=== PATIENT | male | born 1990 | race American Indian/Alaskan Native ===

== ENCOUNTER 2020-02-01 13:17 | Emergency (ER) | payer SELFPAY ==
--- NOTE | 2020-02-01 13:31 | EDM.PDOC ---
ED HPI GENERAL MEDICAL PROBLEM - General Chief Complaint: Lower Extremity Injury/Pain Stated Complaint: [facility] Time Seen by Provider: 02/01/20 13:22 - History of Present Illness INITIAL COMMENTS - FREE TEXT/NARRATIVE: 29-year-old male presents the emergency room brought in by EMS after trying to jump on a horse and falling off. Patient was participating in a competition and he attempted to run up and jump onto the back of a 17 hand thoroughbred. His first attempt he missed and hit the side of the horse his second attempt he did something causing him quite a bit of pain around his right hip. He was in excruciating pain when he got here [facility] brought him in he received 10 mg of morphine and 200 mcg of fentanyl. Patient denies significant medical problems in the past. He is not taking any routine medications patient uses alcohol on the weekends. He is alert and oriented very cooperative at this time denies recent use of alcohol Back Pain Score (Numeric/FACES): 7 - Related Data Allergies Allergy/AdvReac Type Severity Reaction Status Date / Time No Known Allergies Allergy Verified 02/01/20 13:31 Home Meds: Home Meds Cyclobenzaprine [Flexeril] 10 mg PO TID PRN #15 tab 02/01/20 [Rx] Naproxen [Naprosyn] 500 mg PO Q12HR #20 tab 02/01/20 [Rx] Review of Systems - Review of Systems Review Of Systems: See Below Constitutional: Reports: No Symptoms Eyes: Reports: No Symptoms Ears: Reports: No Symptoms Nose: Reports: No Symptoms Mouth/Throat: Reports: No Symptoms Respiratory: Reports: No Symptoms Cardiovascular: Reports: No Symptoms GI/Abdominal: Reports: No Symptoms Genitourinary: Reports: No Symptoms Musculoskeletal: Reports: Back Pain, Other (Right hip pain) Skin: Reports: No Symptoms Neurological: Reports: No Symptoms Psychiatric: Reports: No Symptoms ED EXAM, GENERAL - Physical Exam Exam: See Below Exam Limited By: No Limitations General Appearance: Alert, No Apparent Distress Eye Exam: Bilateral Eye: Normal Inspection Ears: Normal External Exam, Normal Canal, Hearing Grossly Normal, Normal TMs Nose: Normal Inspection, Normal Mucosa, No Blood Throat/Mouth: Normal Inspection, Normal Lips, Normal Teeth, Normal Gums, Normal Oropharynx, Normal Voice, No Airway Compromise, Other (Missing some teeth but no acute changes noted) Head: Atraumatic, Normocephalic Neck: Normal Inspection, Supple, Non-Tender, Full Range of Motion. No: Limited Range of Motion, Lymphadenopathy (L), Lymphadenopathy (R), Tender Lateral, Tender Midline Respiratory/Chest: No Respiratory Distress, Lungs Clear, Normal Breath Sounds Cardiovascular: Regular Rate, Rhythm, No Edema, No Murmur GI/Abdominal: Normal Bowel Sounds, Soft, Non-Tender, No Organomegaly, No Distention, No Abnormal Bruit, No Mass, Pelvis Stable Back Exam: Vertebral Tenderness (Has tenderness in the lower lumbar region mostly on the right paraspinous area but it is hard to exclude vertebral tenderness) Extremities: Other (Neurovascular status of lower extremities is normal trying to manipulate the right hip is very difficult at this point pelvis is stable he has significant discomfort over the lower lumbar paraspinous muscles again difficult to exclude bony tenderness) Neurological: Alert, Oriented, Normal Cognition, Other (Patient denies any numbness or tingling down his legs he has had no loss of bowel or bladder control) Psychiatric: Normal Affect, Normal Mood Skin Exam: Warm, Dry, Intact, Normal Color, No Rash Course - Vital Signs Last Recorded V/S: Last Vital Signs Temp 36.8 C 02/01/20 13:20 Pulse 69 02/01/20 13:20 Resp BP 167/94 H 02/01/20 13:20 Pulse Ox 97 02/01/20 13:20 - Orders/Labs/Meds Orders: Active Orders 24 hr Category Date Time Status Lactated Ringers [Ringers, Lactated] 1,000 ml Med 02/01/20 15:34 Active IV .BOLUS Medication Orders Lactated Ringer's (Ringers, Lactated) 1,000 mls @ 999 mls/hr IV .BOLUS ONE Stop: 02/01/20 16:34 Meds: Medications Generic Name Dose Route Start Last Admin Trade Name Freq PRN Reason Stop Dose Admin Lactated Ringer's 1,000 mls @ 999 mls/hr 02/01/20 15:34 Ringers, Lactated IV 02/01/20 16:34 .BOLUS ONE Discontinued Medications Generic Name Dose Route Start Last Admin Trade Name Freq PRN Reason Stop Dose Admin Cyclobenzaprine HCl 10 mg 02/01/20 15:34 Flexeril PO 02/01/20 15:35 ONETIME ONE Ketorolac Tromethamine 30 mg 02/01/20 15:34 Toradol IVPUSH 02/01/20 15:35 ONETIME ONE Lorazepam 1 mg 02/01/20 13:32 02/01/20 13:38 Ativan IVPUSH 02/01/20 13:33 1 mg ONETIME ONE Administration - Re-Assessments/Exams Free Text/Narrative Re-Assessment/Exam: 02/01/20 15:43 Patient was quite tensed up when he arrived to the emergency room he was given a milligram of Ativan and this helped out significantly almost right away he was able to relax and felt much better. At this point admitting give a liter of LR Toradol and start him on Flexeril anticipating to discharge with Flexeril and Naprosyn. Departure - Departure Time of Disposition: 15:43 Disposition: Home, Self-Care 01 Clinical Impression: Low back strain, Strain of right hip - Discharge Information Forms: ED Department Discharge Additional Instructions: Return to the emergency room with any questions problems or worsening symptoms. You have been given a prescription for Flexeril, this is a muscle relaxant you will take it 3 times a day for [address] return to work within 12 hours of using this medication. Do not mix this medication with alcohol. You have also been given a prescription for naproxen. Take 1 twice daily with breakfast and your evening meal. You will be on this for 10 days. Follow-up with your regular physician or the hospital clinic early this next week for recheck the phone number to the hospital clinic is [phone]. Sepsis Event Note - Focused Exam Vital Signs: Vital Signs Temp Pulse BP Pulse Ox 02/01/20 13:20 36.8 C 69 167/94 H 97 Date Exam was Performed: 02/01/20 Time Exam was Performed: 15:38 - My Orders Last 24 Hours: My Active Orders 02/01/20 15:34 Lactated Ringers [Ringers, Lactated] 1,000 ml IV .BOLUS - Assessment/Plan Last 24 Hours: My Active Orders 02/01/20 15:34 Lactated Ringers [Ringers, Lactated] 1,000 ml IV .BOLUS
[2020-02-01] MEDS ORDERED: LORazepam 2 MG/ML SDV IVPUSH ONE (13:32)
--- NOTE | 2020-02-01 14:09 | CR ---
Pelvis and right hip: AP view of the pelvis was obtained as well as AP and frog-leg lateral views of the right hip. Findings: Small detached bony density is noted off the superior acetabulum. This is believed to be a normal variant. Joint spaces within both hips are preserved. Slightly prominent superior acetabulum is noted within the right hip which can result in premature arthritic change. Sacroiliac joints are normal. No acute abnormality is seen. Impression: 1. Findings as noted above. 2. Nothing acute is seen. Diagnostic code #3 This report was dictated in MDT
--- NOTE | 2020-02-01 14:11 | CR ---
Lumbar spine: AP, lateral and coned-down lateral view centered to the lumbosacral junction were obtained. Comparison: No previous lumbar spine imaging. Vertebral body heights are maintained. Mild posterior disc space narrowing is noted at L5-S1. Other disc spaces are maintained. Mild scattered endplate osteophytes are seen. Pedicles are intact. Visualized transverse and spinous processes are intact. Sacroiliac joints are normal. Surgical clips are seen within the left abdomen. Impression: 1. Slight degenerative change as noted above. 2. Nothing acute is definitely appreciated on 2 view lumbar spine study. Diagnostic code #2 This report was dictated in MDT
[2020-02-01] MEDS ORDERED: Cyclobenzaprine 10 MG Tab PO ONE (15:34)
[2020-02-01] MEDS ORDERED: Lactated Ringers 1,000 ML IV ONE (15:34)
[2020-02-01] MEDS ORDERED: Ketorolac 30 MG/ML SDV IVPUSH ONE (15:34)
== END 2020-02-01 17:00 | disposition home or self-care (01) ==
LOC: JD.ED 13:17
DX: S39.012A Strain of muscle, fascia and tendon of lower back, initial encounter (principal); S76.011A Strain of muscle, fascia and tendon of right hip, initial encounter; W55.12XA Struck by horse, initial encounter
CPT/HCPCS: 72100; 73502; 96374; 96375; 99283; A9270; J1885; J2060; J7120

== ENCOUNTER 2024-02-25 20:50 | Emergency (ER) | payer SELFPAY ==
[2024-02-25] MEDS: Ketorolac 30 MG/ML SDV IVPUSH ONE (22:08)
== END 2024-02-25 22:16 | disposition home or self-care (01) ==
LOC: JD.ED 20:50
DX: R07.81 Pleurodynia (principal); F17.210 Nicotine dependence, cigarettes, uncomplicated; X50.0XXA Overexertion from strenuous movement or load, initial encounter; Y99.0 Civilian activity done for income or pay
CPT/HCPCS: 71111; 96372; 99285; J1885; 99284